=== PATIENT | female | born 1965 | race Caucasian/White ===

== ENCOUNTER → 2023-12-31 11:59 | Outpatient (REF) | payer BC, SELFPAY | LOC: HWRAD 11:59 | PROVIDERS: ATTENDING PHYSICIAN Orthopaedic Surgery; FAMILY PHYSICIAN Family Medicine | DX: M25.562 Pain in left knee (principal) | CPT/HCPCS: 73560; 73565 ==

== ENCOUNTER → 2024-06-12 08:32 | Outpatient (REF) | payer BC, SELFPAY | LOC: PAVMRI 08:32 | PROVIDERS: ATTENDING PHYSICIAN Podiatrist Foot & Ankle Surgery; FAMILY PHYSICIAN Family Medicine | DX: M72.2 Plantar fascial fibromatosis (principal) | CPT/HCPCS: 73721 ==

== ENCOUNTER → 2025-04-26 14:50 | Outpatient (REF) | payer BC, SELFPAY | LOC: HWEVLT 14:50 | PROVIDERS: ATTENDING PHYSICIAN Radiology Diagnostic Radiology | DX: I83.892 Varicose veins of left lower extremity with other complications (principal) | CPT/HCPCS: 93971 ==